=== PATIENT | male | born 1935 | race Caucasian/White ===

== ENCOUNTER → 2017-07-10 10:38 | Outpatient (CLI) | payer MEDICARE, SELFPAY ==
[2017-07-10 12:24] LABS: ALB/GLOB Ratio 1.1 RATIO (0.9-2.4); AST(SGOT) 19 U/L (15-37); Alanine Aminotransfer ALT/SGPT 25 U/L (16-61); Albumin, Serum 3.5 g/dL (3.2-5.0); Alkaline Phosphatase 100 U/L (45-117); Anion Gap 5 (5-15); BUN 21 mg/dL (7-18); BUN/Creat Ratio 20.2 RATIO (10-20); Calcium,Total 8.6 mg/dL (8.5-10.1); Chloride 110 mmol/L (98-107); Cholesterol 129 mg/dL (200); Creatinine, Serum 1.04 mg/dL (0.70-1.30); EST Glomerular Filtration Rate 73 mL/min (>60); Est Glom Filt Rate - Afr Amer 88 mL/min (>60); Globulin 3.3 g/dL (2.2-4.2); Glucose 96 mg/dL (74-106); High Density Lipoprotein 53 mg/dL; Potassium 4.2 mmol/L (3.5-5.1); Protein, Total 6.8 g/dL (6.4-8.2); Sodium Level 143 mmol/L (136-145); Triglycerides 97 mg/dL; Very Low Density Lipoprotein 19 mg/dL (5-40)
[2017-07-10 12:34] LABS: Hemoglobin A1c 5.9 % (4.2-6.3)
== END ==
PROVIDERS: Family Provider Internal Medicine; PCP Internal Medicine; Visit Provider Family Medicine
DX: E78.2 Mixed hyperlipidemia (principal); Z79.899 Other long term (current) drug therapy
CPT/HCPCS: 80053; 80061; 83036

== ENCOUNTER → 2017-09-04 06:30 | Outpatient (CLI) | payer MEDICARE, SELFPAY ==
--- NOTE | 2017-09-04 06:32 | CDU_ITS ---
Reason For Study: vertigo Rt. Velocities/BP Lt. Velocities/BP Prox CCA 133.0/12.9 cm/sec. Prox CCA 160.0/29.1 cm/sec. Mid CCA 118.0/13.5 cm/sec. Mid CCA 158.0/28.3 cm/sec. Dist CCA 105.0/15.8 cm/sec. Dist CCA 123.0/20.4 cm/sec. Prox ICA 43.2/12.2 cm/sec. Prox ICA 115.0/27.0 cm/sec. Mid ICA 100.0/28.1 cm/sec. Mid ICA 105.0/24.6 cm/sec. Dist ICA 70.9/19.3 cm/sec. Dist ICA 64.0/15. cm/sec. Rt. ICA/CCA = 100.0/118.0=0.85. Lt. ICA/CCA = 115.0/158.0=0.73. Prox ECA 114.0/9.97 cm/sec. Prox ECA 114.0/13.4 cm/sec. Rt. Vert. 51.5/13.4 cm/sec. Lt. Vert. 53.8/18.9 cm/sec. Right Extracranial There is homogeneous, smooth atherosclerotic plaque noted in the right common carotid artery. There is heterogeneous, irregular atherosclerotic plaque noted in the right internal carotid artery. The right internal carotid artery is very tortuous. There is intimal thickening but no significant atherosclerotic plaque noted in the right external carotid artery. Antegrade flow is noted in the right vertebral artery. Left Extracranial There is homogeneous, smooth atherosclerotic plaque noted in the left common carotid artery. There is heterogeneous, irregular atherosclerotic plaque noted in the left internal carotid artery. The left internal carotid artery is very tortuous. There is no significant atherosclerotic plaque noted in the left external carotid artery. Antegrade flow is noted in the left vertebral artery. Procedure Carotid Duplex [id number]. The exam was diagnostic. The study was technically difficult. Exam performed in department. Interpretation Summary Mild irregular plague within the right internal carotid with smooth plague on the left. <50% stenosis bilateral internal carotids Normal flow bilateral external carotids Patent and antegrade vertebrals bilaterally. Ordering Physician: Kishor Lee Referring Physician: Ponce Camacho Performed By: Kavita Xie, RUDY, RVT
--- NOTE | 2017-09-04 06:32 | ECHOD_ITS ---
Reason For Study: CAD/ASHD Procedure This was a 2D Doppler, Color Flow transthoracic echocardiogram. Exam performed in department. Left Ventricle Normal LV size. The estimated ejection fraction is 50 %. Left ventricular systolic function is lower limits of normal. Transmitral diastolic flow velocities suggest mild (stage 1) diastolic dysfunction (reversed pattern). No regional wall motion abnormalities noted. Right Ventricle Normal RV size. Normal systolic function. Atria Normal left atrium. Normal right atrium. Mitral Valve Normal mitral valve. Tricuspid Valve Normal tricuspid valve. Mild (1+) tricuspid valve insufficiency. Pulmonary artery systolic pressure is 29 mmHg. Aortic Valve Normal aortic valve. Trisinus/trileaflet aortic valve. Mild (1+) eccentric aortic valve insufficiency. Pulmonic Valve Normal pulmonic valve. Mild (1+) pulmonic valve insufficiency. Great Vessels Normal aortic root. The pulmonary artery is normal size. Normal inferior vena cava. Pericardium/Pleural No pericardial effusion. MMode/2D Measurements & Calculations LVIDd: 5.3 cm IVSd: 1.2 cm Ao root diam: 3.2 cm LVIDs: 3.7 cm LVPWd: 1.2 cm RVDd: 2.7 cm FS: 29.8 % LAV(MOD-bp): 61.1 ml EDV(MOD-sp4): 131.4 ml SV(MOD-sp4): 72.2 ml LAV(MOD-bp) Indexed: 30.7 ml/m2 ESV(MOD-sp4): 59.2 ml LAV(MOD-sp2): 59.5 ml EF(MOD-sp4): 54.9 % LAV(MOD-sp4): 62.2 ml LA A4 area: 20.1 cm2 RA A4 area: 15.5 cm2 Time Measurements MV dec time: 0.24 sec Doppler Measurements & Calculations MV E max shivam: 79.8 cm/sec Lat Peak E' Shivam: 5.6 cm/sec Med Peak E' Shivam: 4.5 cm/sec MV A max shivam: 128.2 cm/sec E/E' lat: 14.2 E/E' med: 17.9 MV E/A: 0.62 Ao V2 max: 132.4 cm/sec AI max shivam: 297.4 cm/sec LV V1 max: 76.1 cm/sec Ao max P.0 mmHg AI max P.4 mmHg LV V1 max P.3 mmHg AI dec slope: 102.7 cm/sec2 AI P1/2t: 847.9 msec PA V2 max: 106.3 cm/sec PI end-d shivam: 73.0 cm/sec TR max shivam: 256.6 cm/sec TR max P.3 mmHg Interpretation Summary Normal LV size. The estimated ejection fraction is 50 %. Left ventricular systolic function is lower limits of normal. Mild (1+) tricuspid valve insufficiency. Mild (1+) eccentric aortic valve insufficiency. Ordering Physician: Kishor Lee Referring Physician: RICKIE BLACKBURN Performed By: Elizabeth Guevara RDCS
--- NOTE | 2017-09-04 10:21 | STRESSREP ---
Stress Test Report Pharmacologic myocardial perfusion stress test. 82-year-old man with a history of chest pain. Stress protocol: Resting EKG demonstrates sinus bradycardia with a rate of 50 bpm. Resting blood pressure is 164/80 mmHg. The patient exercised according to the regular [facility] protocol for total duration of 3 minutes and 30 seconds. The maximum heart rate attained was 131 bpm which was 93% of maximum predicted heart rate. Patient maintained sinus rhythm throughout the recording with a short period of a supraventricular tachyarrhythmia. During recovery premature ventricular complexes were noted. The above were asymptomatic. The resting blood pressure was 164/80 mmHg with a final blood pressure 158/78 mmHg. No clinical angina was noted. The maximum workload attained was 4.6 metabolic equivalents. Myocardial perfusion protocol: 11.4 mCi of technetium 99m sestamibi was injected at rest. The patient exercised according to regular [facility] protocol for 3-1/2 minutes attaining 93% of maximum predicted heart rate and a workload of 4.6 metabolic equivalents. At peak exercise 32.8 mCi of technetium 99m sestamibi was injected. Stress and rest images were reconstructed and compared in the short axis vertical long and horizontal long axis. Gated images were also obtained. Perfusion SPECT analysis: Review of the stress images demonstrate normal uptake of tracer noted in all areas of the myocardium. The basal lateral wall demonstrates mild reduction in perfusion which is present on the stress and rest images to a similar extent. A previous infarct in this area cannot be completely excluded. No ischemia however is noted. Gated SPECT analysis: The gated ejection fraction is noted to be 53%. Conclusion: Exercise myocardial perfusion stress test with no evidence of ischemia noted at a low workload. Previous basal infarct cannot be completely excluded. Preserved ejection fraction.
== END ==
PROVIDERS: Family Provider Family Medicine; PCP Family Medicine; Visit Provider Internal Medicine Cardiovascular Disease
DX: I25.10 Atherosclerotic heart disease of native coronary artery without angina pectoris (principal); R09.89 Other specified symptoms and signs involving the circulatory and respiratory systems
CPT/HCPCS: 78452; 93017; 93306; 93880; A9500; A4216

== ENCOUNTER 2018-05-12 05:20 | Emergency (ER) | payer MEDICARE, SELFPAY ==
[2018-05-12 05:22] VITALS: BP 158/84; PULSE 79; RESP 16; TEMP 36.9; O2SAT 95; BMI 32.2
[2018-05-12] MEDS: 0.9% Normal Saline 1,000 ML 1000 ML IV (06:15)
[2018-05-12 06:16] LABS: Absolute Lymphocyte Count 0.88 X10^3/ul (0.83-4.51); Absolute Neutrophil Count 3.6 X10^3/uL (2.0-7.7); Basophil# 0.02 X10^3/uL; Basophil% 0.4 % (0-1); Eosinophil# 0.08 X10^3/uL; Eosinophils% 1.6 % (0-5); Hematocrit 38.1 % (40-54); Hemoglobin 12.9 g/dl (13.0-16.5); Lymphocyte # 0.88 X10^3/ul (4.0); Lymphocyte % 17.3 % (19-41); Mean Corp Hgb Conc 33.9 g/gl (32-36); Mean Corpuscular Hgb 30.9 pg (27.0-32.0); Mean Corpuscular Volume 91.1 fL (80-94); Mean Platelet Vol. 9.9 fl (6.2-12.0); Monocyte# 0.51 X10^3/uL; Neutrophil # 3.58 X10^3/uL (2.7-7.7); Neutrophil % 70.5 % (47-70); Platelet Count 150 K/mm3 (150-450); RBC Distribution Width CV 13.3 % (11.6-14.6); RBC Distribution Width SD 43.2 fl (35.1-43.9); Red Blood Count 4.18 M/mm3 (4.6-6.2); White Blood Count 5.1 K/mm3 (4.4-11.0)
[2018-05-12 06:22] LABS: POSITIVE COUNT NO; POSITIVE DIFFERENTIAL NO; POSITIVE MORPHOLOGY NO
[2018-05-12 06:27] LABS: ALB/GLOB Ratio 1.1 RATIO (0.9-2.4); AST(SGOT) 33 U/L (15-37); Alanine Aminotransfer ALT/SGPT 36 U/L (16-61); Albumin, Serum 3.4 g/dL (3.2-5.0); Alkaline Phosphatase 110 U/L (45-117); Anion Gap 9 (5-15); BUN 24 mg/dL (7-18); BUN/Creat Ratio 22.6 RATIO (10-20); Calcium,Total 8.3 mg/dL (8.5-10.1); Chloride 110 mmol/L (98-107); Creatinine, Serum 1.06 mg/dL (0.70-1.30); EST Glomerular Filtration Rate 71 mL/min (>60); Est Glom Filt Rate - Afr Amer 86 mL/min (>60); Estimated Creatinine Clearance 49.32 ml/min; Glucose 106 mg/dL (74-106); Lipase 127 U/L (73-393); Potassium 3.6 mmol/L (3.5-5.1); Protein, Total 6.4 g/dL (6.4-8.2); Sodium Level 144 mmol/L (136-145)
--- NOTE | 2018-05-12 06:29 | ED.VISSUMM ---
- ER Visit Summary Date of Service: 05/12/18 Chief Complaint: Nausea vomiting and diarrhea History of Present Illness: The patient is a 83 M who states that he attended a libertarian on . The next day he developed nausea vomiting and diarrhea. He has not had any further vomiting since May 09 but continues to have diarrhea. He states he has had 4 episodes since midnight. There were at least 2 other individuals from the libertarian with similar symptoms although as far as he is aware that her symptoms have had since resolved. The patient denies any abdominal pain. He is concerned because he states he knows of end of joules with similar symptoms who then developed kidney problems. No fevers. Review of systems otherwise negative. Physical Examination: Afebrile vitals unremarkable heart rate normal Moist mucous membranes Heart regular rate and rhythm Lungs are clear Abdomen soft nontender to palpation nondistended Test Results: Labs unremarkable except hemoglobin 12.9. White count hepatic function lipase creatinine all normal. Emergency Department Course and Treatment: Patient was treated here with IV fluids. He has had no vomiting for 3 days. He does not appear clinically dehydrated and renal function is normal. He has no leukocytosis fevers tachycardia. I do not believe any imaging is indicated. This is likely related to food poisoning or viral illness. He was advised on supportive care including drinking plenty of fluids. He was advised to follow-up with his primary care physician. He understands to return for new or worsening symptoms. Patient agreeable to this plan, all questions answered bedside. Patient discharged. Treatment Plan: [] Disposition: Discharge Impression: Gastroenteritis This note was generated with [employer] dictation software. It may contain incorrect words, spelling, and punctuation that were not noted in review of the chart prior to signing ED Disposition - Plan for ED Patient: Chief Complaint: Nausea/Vomiting/Diarrhea Referrals: Ponce Camacho MD [Primary Care Provider] -
--- NOTE | 2018-05-12 06:39 | ED.DEP ---
ED Disposition - Plan for ED Patient: Chief Complaint: Nausea/Vomiting/Diarrhea Instructions: ED Gastroenteritis Vs Food Poison Referrals: Ponce Camacho MD [Primary Care Provider] -
[2018-05-12 06:53] VITALS: BP 150/85; PULSE 69; RESP 16; O2SAT 95
== END 2018-05-12 06:58 | disposition home or self-care (01) ==
PROVIDERS: Emergency Provider Emergency Medicine; Family Provider Family Medicine; PCP Family Medicine
DX: K52.9 Noninfective gastroenteritis and colitis, unspecified (principal); I25.10 Atherosclerotic heart disease of native coronary artery without angina pectoris; I10 Essential (primary) hypertension; Z79.82 Long term (current) use of aspirin; Z79.899 Other long term (current) drug therapy; Z95.5 Presence of coronary angioplasty implant and graft
CPT/HCPCS: 80053; 83690; 85025; 96360; 99285; J7030

== ENCOUNTER → 2018-06-21 17:10 | Outpatient (CLI) | payer MEDICARE, SELFPAY | PROVIDERS: Family Provider Family Medicine; PCP Family Medicine; Referring Provider Family Medicine; Visit Provider Family Medicine | DX: K92.1 Melena (principal) | CPT/HCPCS: 82274 ==

== ENCOUNTER → 2018-07-05 13:49 | Outpatient (CLI) | payer MEDICARE, SELFPAY ==
[2018-07-05 14:28] LABS: Hematocrit 39.9 % (40-54); Hemoglobin 13.1 g/dl (13.0-16.5); Mean Corp Hgb Conc 32.8 g/gl (32-36); Mean Corpuscular Hgb 30.2 pg (27.0-32.0); Mean Corpuscular Volume 91.9 fL (80-94); Mean Platelet Vol. 10.2 fl (6.2-12.0); Platelet Count 172 K/mm3 (150-450); RBC Distribution Width CV 13.5 % (11.6-14.6); RBC Distribution Width SD 44.5 fl (35.1-43.9); Red Blood Count 4.34 M/mm3 (4.6-6.2); White Blood Count 5.4 K/mm3 (4.4-11.0)
[2018-07-05 14:30] LABS: Scan Indicated on CBC? Y/N NO
== END ==
PROVIDERS: Family Provider Family Medicine; PCP Family Medicine; Referring Provider Nurse Practitioner Adult Health; Visit Provider Nurse Practitioner Adult Health
DX: R19.5 Other fecal abnormalities (principal); K62.5 Hemorrhage of anus and rectum
CPT/HCPCS: 85027

== ENCOUNTER → 2018-07-10 10:07 | Outpatient (CLI) | payer MEDICARE, SELFPAY ==
[2018-07-10 10:40] LABS: Hemoglobin A1c 5.7 % (4.2-6.3)
[2018-07-10 10:58] LABS: ALB/GLOB Ratio 1.2 RATIO (0.9-2.4); AST(SGOT) 15 U/L (15-37); Alanine Aminotransfer ALT/SGPT 22 U/L (16-61); Albumin, Serum 3.6 g/dL (3.2-5.0); Alkaline Phosphatase 87 U/L (45-117); Anion Gap 9 (5-15); BUN 22 mg/dL (7-18); BUN/Creat Ratio 21.4 RATIO (10-20); Calcium,Total 8.2 mg/dL (8.5-10.1); Chloride 110 mmol/L (98-107); Cholesterol 120 mg/dL (200); Creatinine, Serum 1.03 mg/dL (0.70-1.30); EST Glomerular Filtration Rate 74 mL/min (>60); Est Glom Filt Rate - Afr Amer 89 mL/min (>60); Glucose 96 mg/dL (74-106); High Density Lipoprotein 51 mg/dL; Potassium 4.1 mmol/L (3.5-5.1); Protein, Total 6.6 g/dL (6.4-8.2); Sodium Level 144 mmol/L (136-145); Thyroid Stim Hormone (TSH) 1.73 uIU/mL (0.358-3.74); Triglycerides 90 mg/dL; Very Low Density Lipoprotein 18 mg/dL (5-40)
== END ==
PROVIDERS: Family Provider Family Medicine; PCP Family Medicine; Referring Provider Family Medicine; Visit Provider Family Medicine
DX: E78.2 Mixed hyperlipidemia (principal); I10 Essential (primary) hypertension; R73.01 Impaired fasting glucose; Z79.899 Other long term (current) drug therapy
CPT/HCPCS: 80053; 80061; 83036; 84443

== ENCOUNTER → 2018-09-25 13:00 | Outpatient (CLI) | payer MEDICARE, SELFPAY ==
[2018-08-16 10:42] VITALS: BMI 32.1
== END ==
PROVIDERS: Family Provider Family Medicine; PCP Family Medicine; Referring Provider Family Medicine; Visit Provider Family Medicine
DX: R30.9 Painful micturition, unspecified (principal)
CPT/HCPCS: 87077; 87086; 87088; 87186

== ENCOUNTER → 2019-01-11 10:43 | Outpatient (CLI) | payer MEDICARE, SELFPAY ==
[2018-08-16 10:42] VITALS: BMI 32.1
[2019-01-11 11:21] LABS: ALB/GLOB Ratio 1.1 RATIO (0.9-2.4); AST(SGOT) 15 U/L (15-37); Alanine Aminotransfer ALT/SGPT 19 U/L (16-61); Albumin, Serum 3.3 g/dL (3.2-5.0); Alkaline Phosphatase 90 U/L (45-117); Anion Gap 5 (5-15); BUN 22 mg/dL (7-18); BUN/Creat Ratio 20.4 RATIO (10-20); Calcium,Total 8.4 mg/dL (8.5-10.1); Chloride 114 mmol/L (98-107); Cholesterol 119 mg/dL (200); Creatinine, Serum 1.08 mg/dL (0.70-1.30); EST Glomerular Filtration Rate 70 mL/min (>60); Est Glom Filt Rate - Afr Amer 84 mL/min (>60); Glucose 99 mg/dL (74-106); High Density Lipoprotein 50 mg/dL; Protein, Total 6.3 g/dL (6.4-8.2); Sodium Level 145 mmol/L (136-145); Triglycerides 71 mg/dL; Very Low Density Lipoprotein 14 mg/dL (5-40)
[2019-01-11 12:13] LABS: Hemoglobin A1c 5.6 % (4.2-6.3)
== END ==
PROVIDERS: Family Provider Family Medicine; PCP Family Medicine; Referring Provider Nurse Practitioner Family; Visit Provider Nurse Practitioner Family
DX: I10 Essential (primary) hypertension (principal); E78.2 Mixed hyperlipidemia; R73.09 Other abnormal glucose
CPT/HCPCS: 80053; 80061; 83036

== ENCOUNTER → 2020-01-24 | Outpatient (CLI) | payer MEDICARE, SELFPAY ==
[2019-08-15 09:35] VITALS: BMI 30.7
[2020-01-24 13:10] LABS: Absolute Lymphocyte Count 1.19 X10^3/uL (0.83-4.51); Absolute Neutrophil Count 3.1 X10^3/uL (2.0-7.7); Basophil# 0.03 X10^3/uL; Basophil% 0.6 % (0-1); Eosinophil# 0.14 X10^3/uL; Eosinophils% 2.8 % (0-5); Hematocrit 38.1 % (40-54); Hemoglobin 12.6 g/dL (13.0-16.5); Lymphocyte # 1.19 X10^3/ul (4.0); Lymphocyte % 23.5 % (19-41); Mean Corp Hgb Conc 33.1 g/dL (32-36); Mean Corpuscular Volume 90.7 fL (80-94); Mean Platelet Vol. 10.3 fl (6.2-12.0); Monocyte# 0.56 X10^3/uL; Monocyte% 11.1 % (0-10); NRBC Flagged by Analyzer 0 % (0-5); Neutrophil # 3.13 X10^3/uL (2.7-7.7); Neutrophil % 61.8 % (47-70); Platelet Count 171 K/mm3 (150-450); RBC Distribution Width CV 13.1 % (11.6-14.6); RBC Distribution Width SD 43.2 fl (35.1-43.9); White Blood Count 5.1 K/mm3 (4.4-11.0)
[2020-01-24 13:21] LABS: ALB/GLOB Ratio 1.2 RATIO (0.9-2.4); AST(SGOT) 18 U/L (15-37); Alanine Aminotransfer ALT/SGPT 21 U/L (16-61); Albumin, Serum 3.5 g/dL (3.2-5.0); Alkaline Phosphatase 87 U/L (45-117); Anion Gap 7 (5-15); BUN 21 mg/dL (7-18); BUN/Creat Ratio 16.9 RATIO (10-20); Calcium,Total 8.7 mg/dL (8.5-10.1); Chloride 111 mmol/L (98-107); Cholesterol 129 mg/dL (200); Creatinine, Serum 1.24 mg/dL (0.70-1.30); EST Glomerular Filtration Rate 59 mL/min (>60); Est Glom Filt Rate - Afr Amer 72 mL/min (>60); Glucose 100 mg/dL (74-106); High Density Lipoprotein 45 mg/dL; Potassium 3.9 mmol/L (3.5-5.1); Protein, Total 6.5 g/dL (6.4-8.2); Sodium Level 144 mmol/L (136-145); Triglycerides 96 mg/dL; Very Low Density Lipoprotein 19 mg/dL (5-40)
[2020-01-24 13:34] LABS: Hemoglobin A1c 5.6 % (3.8-5.6)
== END | disposition home or self-care (01) ==
LOC: LABSPEC 12:51
PROVIDERS: PCP Family Medicine; Visit Provider Registered Nurse
DX: I10 Essential (primary) hypertension (principal); E78.2 Mixed hyperlipidemia; I25.10 Atherosclerotic heart disease of native coronary artery without angina pectoris; R73.09 Other abnormal glucose
CPT/HCPCS: 80053; 80061; 83036; 85025

== ENCOUNTER 2020-07-01 14:29 | Outpatient (RCR) | payer MEDICARE, SELFPAY ==
[2020-04-13 09:19] VITALS: BMI 30.4
== END 2020-07-01 23:59 ==
LOC: IMMUN 14:29
PROVIDERS: PCP Family Medicine; Referring Provider Family Medicine; Visit Provider Family Medicine
DX: Z23 Encounter for immunization (principal)
CPT/HCPCS: 0011A; 0012A; 91301

== ENCOUNTER 2020-11-29 12:52 | Emergency (ER) | payer MEDICARE, SELFPAY ==
[2020-11-24 10:11] VITALS: BMI 32.1
[2020-11-29 12:54] VITALS: BP 167/79; PULSE 73; RESP 16; TEMP 37; O2SAT 96; BMI 32.2
[2020-11-29] MEDS: Lidocaine 1% (20 ml mdv) 20 ML Vial 5 ML INFILT (13:14)
[2020-11-29] MEDS: Diphth,Pertuss(Acell),Tet Vac 0.5 ML Vial IM (13:15)
--- NOTE | 2020-11-29 13:21 | EDS_ITS ---
HPI History of Present Illness Chief Complaint: Laceration Informant: patient Narrative Narrative: Patient is an 85-year-old male who presents to the emergency department for right thumb laceration. He states that he cut it on the table saw today. He denies any other injury from the occurrence. Patient is on an aspirin daily as well as Plavix. No other blood thinning medications. Bleeding controlled on arrival to the ED. He denies any loss sensation. He does have good range of motion. Patient does not know when his last tetanus shot update was. [facility] Medical History Atherosclerotic heart disease of [place] coronary artery without angina pectoris BPH (benign prostatic hyperplasia) Essential (primary) hypertension Hearing loss in right ear History of kidney stones History of non-ST elevation myocardial infarction (NSTEMI) (09/06/14) Obesity Primary hyperparathyroidism Pure hypercholesterolemia Home Medications aspirin 81 mg PO DAILY 09/06/14 [History Last Taken Unknown] multivitamin with folic acid 1 tab PO DAILY 09/06/14 [History Last Taken Unknown] nitroglycerin 0.4 mg sublingual tablet 0.4 mg SUBLINGUAL Q5-15M PRN 08/15/17 [History Last Taken Unknown] atorvastatin 80 mg tablet 80 mg PO QDAY #90 tab 08/15/19 [Rx Last Taken Unknown] carvedilol 6.25 mg tablet 6.25 mg PO BID #180 tab 08/15/19 [Rx Last Taken Unknown] cholecalciferol (vitamin D3) 25 mcg (1,000 unit) capsule 2,000 unit PO QDAY cap 08/15/19 [History Last Taken Unknown] clopidogrel 75 mg tablet 75 mg PO QDAY #90 tab 08/15/19 [Rx Last Taken Unknown] melatonin 5 mg capsule 5 mg PO QHS cap 08/15/19 [History Last Taken Unknown] losartan 100 mg tablet 100 mg PO QDAY #90 tab 08/07/20 [Rx Last Taken Unknown] amlodipine 5 mg tablet 5 mg PO DAILY #90 tab 11/24/20 [Rx Last Taken Unknown] diphenhydramine HCl 50 mg capsule 50 mg PO QHS PRN 11/24/20 [History Last Taken Unknown] ibuprofen 200 mg capsule 200 mg PO Q6H PRN 11/24/20 [History Last Taken Unknown] Allergy/AdvReac Type Severity Reaction Status Date / Time No Known Allergies Allergy Verified 11/29/20 12:52 Family History Mother Diabetes Father CAD (coronary artery disease) Myocardial infarction S/P CABG (coronary artery bypass graft) Surgical History History of coronary artery stent placement (10/21/14) Social History Smoking Status: Never smoker ROS ROS ED Constitutional Constitutional ED: Denies chills or fever(s) ENT ENT ED: Denies epistaxis Cardiovascular Cardiovascular: Denies chest pain Respiratory/Chest Respiratory/Chest: Denies cough or dyspnea Gastrointestinal Gastrointestinal: Denies abdominal pain, nausea or vomiting Musculoskeletal Musculoskeletal: Denies back pain or neck pain Integumentary Reports other Details: Thumb laceration ; Denies rash Neurologic Neurologic: Denies weakness EXAM Physical Exam Const Vital Signs: 11/29/20 12:54 11/29/20 14:24 Temperature 98.6 F Temperature Source Temporal Pulse Rate 73 60 Respiratory Rate 16 16 Blood Pressure 167/79 H 148/94 H Blood Pressure Mean 108 Pulse Ox 96 Oxygen Delivery Method Room Air Positive well nourished and well developed General Appearance ED: well developed HEENT atraumatic Eyes PERRL Neck full ROM Resp normal respiratory effort Cardio Rate: regular rate Extremity Extremity Narrative: Thumb laceration with flap, 3.5cm. Sensation intact. Brisk capillary refill. Slow venous ooze present. Full range of motion. No exposed bone. Fat pad involvement. Neuro Sensorium / Orientation: alert Psych mental status grossly normal PROC Procedures Lacerations Thumb: Length: 1.38 in Depth: Skin Shape: Flap Prep: Sterile Conditions and Shure-Clens Laceration repair: Digital block (5cc lido without epi) Number of Sutures/Yashira: 7 Suture Information: Simple and 5-0 MDM MDM MDM Narrative Medical decision making narrative: Patient presents to the ED for laceration to right thumb pad. On arrival to the ED patient is mildly hypertensive otherwise normal vital signs. Patient will be updated on Tdap. Wound is cleaned and will be repaired. Wound was cleaned and irrigated. He tolerated this well. After anesthetizing the thumb it was repaired using sutures. He tolerated this well. Antibiotic ointment and Band-Aid applied. He is to have the sutures removed in 7 to 10 days. He is to monitor for evidence of infection. He understands and is agreeable to plan. Discharged home in stable condition. All questions were answered. Discharge Plan Triage Chief Complaint: Laceration ED Provider: Sergio Roberts Dx/Rx/DC Orders Clinical Impression: Finger laceration Instructions: ED Laceration, Hand: All Closures Prescriptions: No Action nitroglycerin 0.4 mg tablet, sublingual 0.4 mg SUBLINGUAL Q5-15M PRN (Reason: CHEST PAIN) RF: 0 cholecalciferol (vitamin D3) 25 mcg (1,000 unit) capsule 2,000 unit PO QDAY RF: 0 melatonin 5 mg capsule 5 mg PO QHS RF: 0 atorvastatin 80 mg tablet 80 mg PO QDAY Qty: 90 RF: 3 carvedilol [Coreg] 6.25 mg tablet 6.25 mg PO BID Qty: 180 RF: 3 clopidogrel [Plavix] 75 mg tablet 75 mg PO QDAY Qty: 90 RF: 3 ibuprofen 200 mg capsule 200 mg PO Q6H PRNRF: 0 diphenhydramine HCl [Nightime Sleep] 50 mg capsule 50 mg PO QHS PRNRF: 0 amlodipine 5 mg tablet 5 mg PO DAILY Qty: 90 RF: 3 aspirin 81 MG tablet,chewable 81 mg PO DAILY RF: 0 multivitamin with folic acid 1 TABLET tablet 1 tab PO DAILY RF: 0 losartan 100 mg tablet 100 mg PO QDAY Qty: 90 RF: 3 Primary Care Provider: Ponce Camacho Referrals: Ponce Camacho MD [Primary Care Provider] - 7 Days for suture removal Disposition Disposition: Home, Self Care Discharge Date/Time: 11/29/20 14:25
[2020-11-29 14:24] VITALS: BP 148/94; PULSE 60; RESP 16
== END 2020-11-29 14:25 | disposition home or self-care (01) ==
PROVIDERS: Emergency Provider Emergency Medicine; PCP Family Medicine
DX: S61.011A Laceration without foreign body of right thumb without damage to nail, initial encounter (principal); Z23 Encounter for immunization; W29.8XXA Contact with other powered hand tools and household machinery, initial encounter; Y93.9 Activity, unspecified; Y92.9 Unspecified place or not applicable; Y99.9 Unspecified external cause status; I25.10 Atherosclerotic heart disease of native coronary artery without angina pectoris; I10 Essential (primary) hypertension; E21.0 Primary hyperparathyroidism; E78.00 Pure hypercholesterolemia, unspecified; N40.0 Benign prostatic hyperplasia without lower urinary tract symptoms; Z79.82 Long term (current) use of aspirin; Z79.02 Long term (current) use of antithrombotics/antiplatelets; Z79.899 Other long term (current) drug therapy; Z87.442 Personal history of urinary calculi; I25.2 Old myocardial infarction; Z95.5 Presence of coronary angioplasty implant and graft
CPT/HCPCS: 12002; 90471; 90715; 99282

== ENCOUNTER → 2021-01-13 | Outpatient (CLI) | payer MEDICARE, SELFPAY ==
[2021-01-13 12:33] LABS: Cholesterol 113 mg/dL (200); High Density Lipoprotein 34 mg/dL; Triglycerides 120 mg/dL; Very Low Density Lipoprotein 24 mg/dL (5-40)
== END | disposition home or self-care (01) ==
LOC: LABSPEC 12:27
PROVIDERS: PCP Family Medicine; Visit Provider Family Medicine
DX: E78.2 Mixed hyperlipidemia (principal); I10 Essential (primary) hypertension
CPT/HCPCS: 80061

== ENCOUNTER → 2022-05-19 | Outpatient (CLI) | payer MEDICARE, SELFPAY ==
[2022-05-19 13:06] LABS: Absolute Lymphocyte Count 1.35 X10^3/uL (0.83-4.51); Absolute Neutrophil Count 3.7 X10^3/uL (2.0-7.7); Basophil# 0.04 X10^3/uL; Basophil% 0.7 % (0-1); Eosinophil# 0.16 X10^3/uL; Eosinophils% 2.8 % (0-5); Hematocrit 37.1 % (40-54); Hemoglobin 12.1 g/dL (13.0-16.5); Lymphocyte # 1.35 X10^3/ul (0.83-4.51); Lymphocyte % 23.7 % (19-41); Mean Corp Hgb Conc 32.6 g/dL (32-36); Mean Corpuscular Hgb 29.7 pg (27.0-32.0); Mean Corpuscular Volume 90.9 fL (80-94); Monocyte# 0.46 X10^3/uL; Monocyte% 8.1 % (0-10); NRBC Flagged by Analyzer 0 % (0-5); Neutrophil # 3.67 X10^3/uL (2.7-7.7); Neutrophil % 64.5 % (47-70); Platelet Count 161 K/mm3 (150-450); RBC Distribution Width CV 13.6 % (11.6-14.6); RBC Distribution Width SD 45.7 fl (35.1-43.9); Red Blood Count 4.08 M/mm3 (4.6-6.2); White Blood Count 5.7 K/mm3 (4.4-11.0)
[2022-05-19 13:51] LABS: Anion Gap 6 (5-15); BUN 26 mg/dL (7-18); BUN/Creat Ratio 24.8 RATIO (10-20); Calcium,Total 8.5 mg/dL (8.5-10.1); Chloride 110 mmol/L (98-107); Creatinine, Serum 1.05 mg/dL (0.70-1.30); EST Glomerular Filtration Rate 71 mL/min (>60); Est Glom Filt Rate - Afr Amer 86 mL/min (>60); Glucose 168 mg/dL (74-106); Potassium 3.7 mmol/L (3.5-5.1); Sodium Level 143 mmol/L (136-145); T4 Free Direct 0.93 ng/dL (0.76-1.46); Thyroid Stim Hormone (TSH) 1.92 uIU/mL (0.358-3.74)
== END | disposition home or self-care (01) ==
LOC: LAB 12:06
PROVIDERS: PCP Family Medicine; Visit Provider Nurse Practitioner Family
DX: I10 Essential (primary) hypertension (principal); E78.00 Pure hypercholesterolemia, unspecified; R53.83 Other fatigue
CPT/HCPCS: 36415; 80048; 84439; 84443; 85025

== ENCOUNTER 2024-01-21 07:06 | Inpatient (IN) | payer MEDICARE, SELFPAY ==
[2024-01-21] VITALS (8 sets, daily range): BP systolic 97–170; BP diastolic 50–83; PULSE 68–84; RESP 15–19; TEMP 36.3–37.1; O2SAT 95–99; BMI 30.1; BMI 28.9
--- NOTE | 2024-01-21 07:32 | CT_ITS ---
STUDY: CT ABDOMEN AND PELVIS WITH CONTRAST REASON FOR EXAM: Male, 88 years old. Diarrhea RADIATION DOSAGE (If Supplied By Facility): CTDIvol = ( 14.04 ) mGy, DLP = ( 918.69 ) mGycm TECHNIQUE: IV 100mL Isovue-300 was administered. Transaxial images were obtained from the dome of the diaphragm to the symphysis pubis. Multiplanar coronal and sagittal images were reformatted. The protocol utilizes one or more of the following dose reduction techniques: automated exposure control, adjustment of mA and/or kV according to patient size,and/or use of iterative reconstruction technique. COMPARISON: No relevant prior comparison study available FINDINGS: The visualized lung bases are unremarkable. The visualized portions of the heart are within normal limits. Normal liver. Normal gallbladder and extrahepatic biliary system. Normal spleen. Normal pancreas. Normal bilateral adrenal glands. Thickening of the gastric antrum could be due to underdistention. Gastritis cannot be excluded. Nonspecific fluid-filled small bowel loops. Fluid-filled colon. No evidence of acute diverticulitis. There is non-visualization of the appendix. There is diffuse atherosclerotic calcification of the abdominal aorta, without a demonstrated aneurysm. No retroperitoneal adenopathy. 1.6 cm simple cyst in the right kidney for which no further follow-up exam is needed. No evidence of hydronephrosis Normal urinary bladder. No pelvic mass. Small bilateral inguinal hernias containing fat. There are degenerative changes of the visualized lumbar spine. CT/Abdomen/Pelvis W IV Cont ONLY IMPRESSION: 1. Thickening of the gastric antrum and fluid-filled small bowel loops and colon concerning for gastritis and enterocolitis. 2. Otherwise no focal acute inflammatory process. 3. Small bilateral inguinal hernias containing fat. Electronically Signed: Alek Schultz MD at 9:53 EDT ,
--- NOTE | 2024-01-21 07:33 | EX.ED.GENINJ ---
HPI History of Present Illness Chief Complaint: Nausea/Vomiting/Diarrhea Narrative Narrative: Chief complaint and HPI: Nausea, vomiting, diarrhea. 88-year-old male with history of CAD status post PCI, HLD, HTN presents for evaluation of nausea, vomiting, diarrhea. Onset of symptoms was approximately Monday. Patient states since Monday he has had continuous diarrhea with intermittent nausea and vomiting. He presents today due to increased weakness. He endorses decreased p.o. intake. Has been taking all of his medications. He denies any fever, chills, URI symptoms, chest pain, shortness of breath, bloody bowel movements, dysuria. Does endorse some diffuse abdominal pain. Denies history of abdominal surgeries. Denies history of diverticulitis. Review of systems: See HPI Medications: As listed on the chart Allergies: As listed on the chart PFSH: Per chart Vital signs: As listed on the chart. Reviewed. Physical exam: Gen: A&O x3, NAD Head: Normocephalic, atraumatic Eyes: No sclera icterus, conjunctiva clear ENT: Dry mucous membranes Neck: Trachea midline, No JVD CV: RRR, no murmurs, no peripheral edema Resp: Lungs CTA BL, no w/r/c GI: Abd soft, non-distended, minimally tender diffusely, no r/r/g Musc: Moves all extremities, no deformity Skin: Warm, dry Neuro: Alert, oriented, grossly intact, sensation intact Psych: Cooperative, appropriate mood and affect EKG: Interpreted by me/EM physician: EKG shows normal sinus rhythm without any acute ischemic changes. Patient does have intermittent PVCs. His heart rate is 65. [facility] Medical History (Updated 01/21/24 @ 16:[address] Segundo Woody, DO) Hypertension Finger laceration History of non-ST elevation myocardial infarction (NSTEMI) (09/06/14) Obesity Pure hypercholesterolemia Essential (primary) hypertension Hearing loss in right ear Primary hyperparathyroidism BPH (benign prostatic hyperplasia) History of kidney stones Atherosclerotic heart disease of [place] coronary artery without angina pectoris Home Medications ?Medication ?Instructions ?Recorded ?Last Taken ?Type aspirin 81 mg chewable tablet 81 mg PO DAILY 09/06/14 Unknown History multivitamin with folic acid 400 1 tab PO DAILY 09/06/14 Unknown History mcg tablet nitroglycerin 0.4 mg sublingual 0.4 mg sublingual Q5-15M PRN CHEST 08/15/17 Unknown History tablet PAIN cholecalciferol (vitamin D3) 25 2,000 unit PO QDAY 08/15/19 Unknown History mcg (1,000 unit) capsule melatonin 5 mg capsule 5 mg PO QHS 08/15/19 Unknown History losartan 100 mg tablet 100 mg PO QDAY #90 tabs 08/09/21 Unknown Rx amlodipine 5 mg tablet 5 mg PO DAILY #90 tabs 11/10/21 Unknown Rx atorvastatin 80 mg tablet 80 mg PO QDAY #90 tabs 11/25/21 Unknown Rx carvedilol 6.25 mg tablet (Coreg) 6.25 mg PO BID #180 tabs 11/25/21 Unknown Rx clopidogrel 75 mg tablet (Plavix) 75 mg PO QDAY #90 tabs 11/25/21 Unknown Rx [id number] 300 mcg-K 60 1 tab PO DAILY 01/21/24 Unknown History mcg-lycop 600 mcg-lutein 300 mcg tablet (Centrum Silver Men) Allergy/AdvReac Type Severity Reaction Status Date / Time No Known Allergies Allergy Verified 05/19/22 11:16 Family History (Reviewed 05/19/22 @ 11:22 by Murray Bravo CAMPAIGN MANAGEMENT SENIOR MANAGER, CAMPAIGN MANAGEMENT SENIOR MANAGER-C) Mother Diabetes Father CAD (coronary artery disease) Myocardial infarction S/P CABG (coronary artery bypass graft) Surgical History (Reviewed 05/19/22 @ 11:22 by Murray Bravo CAMPAIGN MANAGEMENT SENIOR MANAGER, CAMPAIGN MANAGEMENT SENIOR MANAGER-C) History of coronary artery stent placement (10/21/14) Social History (Reviewed 05/19/22 @ 11:22 by Murray Bravo CAMPAIGN MANAGEMENT SENIOR MANAGER, CAMPAIGN MANAGEMENT SENIOR MANAGER-C) Smoking Status: Never smoker EXAM Physical Exam Const Vital Signs: 01/21/24 07:07 01/21/24 09:06 01/21/24 10:28 Temperature 98 F 98.2 F Temperature Source Temporal Pulse Rate 68 81 71 Respiratory Rate 18 18 15 Blood Pressure 170/83 H 142/78 H 149/69 H Blood Pressure Mean 112 99 95 Pulse Ox 98 98 95 Oxygen Delivery Method Room Air Room Air MDM MDM MDM Narrative Medical decision making narrative: 88-year-old male presents for evaluation of nausea, vomiting, diarrhea. Differential diagnosis includes but is not limited to viral illness, gastroenteritis, diverticulitis, pancreatitis, MELA, dehydration. NS bolus, Zofran ordered for symptoms. Abdominal pain workup ordered including CT abdomen and pelvis. CBC without leukocytosis. CMP relatively unremarkable. Lipase Unremarkable. Troponin negative. Lactic acid unremarkable. UA positive for UTI. CT abdomen pelvis shows a thickening of fluid-filled small bowel loops in gastritis and enterocolitis. He has small bilateral inguinal hernias. Zosyn given for antibiotics this will cover his UTI as well as colitis. Given patient's poor oral intake, weakness, diarrhea patient will benefit from. Patient was updated on his results and confirmed understanding of the plan. Patient was discussed with Dr. Woody and he excepted admission. Impression: 1. Gastritis and enterocolitis 2. UTI 3. Weakness 4. Dehydration 5. Diarrhea Lab Data Labs: Laboratory Results - last 24 hr 01/21/24 01/21/24 07:51 09:10 WBC 7.3 RBC 4.41 L Hgb 13.1 Hct 39.8 L MCV 90.2 MCH 29.7 MCHC 32.9 RDW Std Deviation 44.7 H RDW Coeff of Merlin 13.5 Plt Count 164 MPV 10.0 Immature Gran % (Auto) 0.400 Neut % (Auto) 76.6 H Lymph % (Auto) 14.7 L [place] % (Auto) 7.6 Eos % (Auto) 0.4 Baso % (Auto) 0.3 Absolute Neuts (auto) 5.6 Absolute Lymphs (auto) 1.08 Nucleated RBC % 0 Sodium 141 Potassium 3.8 Chloride 112 H Carbon Dioxide 22.0 Anion Gap 7 BUN 28 H Creatinine 1.14 Estim Creat Clear Calc 47.47 Est GFR (MDRD) Af Amer 78 Est GFR (MDRD) Non-Af 65 BUN/Creatinine Ratio 24.6 H Glucose 122 H Lactic Acid 1.4 Calcium 9.2 Total Bilirubin 0.90 AST 22 ALT 21 Alkaline Phosphatase 89 Troponin I High Sens 12 Total Protein 6.8 Albumin 3.5 Globulin 3.3 Albumin/Globulin Ratio 1.1 Lipase 30 Urine Color Yellow Urine Clarity Sl. Cloudy Urine pH 5.0 Ur Specific [place] 1.015 Urine Protein 30 H Urine Glucose (UA) Normal Urine Ketones Negative Urine Occult Blood 25 H Urine Nitrite Positive H Urine Bilirubin Negative Urine Urobilinogen Normal Ur Leukocyte Esterase 500 H Urine RBC 0-5 SEEN Urine WBC 10-25 SEEN Ur Squamous Epith Cells 0-5 SEEN Urine Bacteria 2+ Urine Mucus 0 SEEN Radiography Diagnostic Testing: Clinical Impression(s) from Imaging Studies Abdomen/Pelvis CT 01/21/24 07:32 IMPRESSION: 1. Thickening of the gastric antrum and fluid-filled small bowel loops and colon concerning for gastritis and enterocolitis. 2. Otherwise no focal acute inflammatory process. 3. Small bilateral inguinal hernias containing fat. Electronically Signed: Alek Schultz MD at 9:53 EDT , Discharge Plan Disposition Disposition: Acute Care Hospital [facility] Discharge Date/Time: 01/21/24 11:14
[2024-01-21] MEDS: Ondansetron 4 MG/2 ML Vial IV (07:50)
[2024-01-21] MEDS: 0.9% Normal Saline (1000mL) 1,000 ML 999 ML IV (07:50)
[2024-01-21 08:01] LABS: Absolute Lymphocyte Count 1.08 X10^3/uL (0.83-4.51); Absolute Neutrophil Count 5.6 X10^3/uL (2.0-7.7); Basophil# 0.02 X10^3/uL; Basophil% 0.3 % (0-1); Eosinophil# 0.03 X10^3/uL; Eosinophils% 0.4 % (0-5); Hematocrit 39.8 % (40-54); Hemoglobin 13.1 g/dL (13.0-16.5); Lymphocyte # 1.08 X10^3/ul (0.83-4.51); Lymphocyte % 14.7 % (19-41); Mean Corp Hgb Conc 32.9 g/dL (32-36); Mean Corpuscular Hgb 29.7 pg (27.0-32.0); Mean Corpuscular Volume 90.2 fL (80-94); Monocyte# 0.56 X10^3/uL; Monocyte% 7.6 % (0-10); NRBC Flagged by Analyzer 0 % (0-5); Neutrophil # 5.61 X10^3/uL (2.7-7.7); Neutrophil % 76.6 % (47-70); Platelet Count 164 K/mm3 (150-450); RBC Distribution Width CV 13.5 % (11.6-14.6); RBC Distribution Width SD 44.7 fl (35.1-43.9); Red Blood Count 4.41 M/mm3 (4.6-6.2); White Blood Count 7.3 K/mm3 (4.4-11.0)
[2024-01-21 08:24] LABS: ALB/GLOB Ratio 1.1 RATIO (0.9-2.4); AST(SGOT) 22 U/L (15-37); Alanine Aminotransfer ALT/SGPT 21 U/L (16-61); Albumin, Serum 3.5 g/dL (3.2-5.0); Alkaline Phosphatase 89 U/L (45-117); Anion Gap 7 (5-15); BUN 28 mg/dL (7-18); BUN/Creat Ratio 24.6 RATIO (10-20); Calcium,Total 9.2 mg/dL (8.5-10.1); Chloride 112 mmol/L (98-107); Creatinine, Serum 1.14 mg/dL (0.70-1.30); EST Glomerular Filtration Rate 65 mL/min (>60); Est Glom Filt Rate - Afr Amer 78 mL/min (>60); Estimated Creatinine Clearance 47.47 ml/min; Globulin 3.3 g/dL (2.2-4.2); Glucose 122 mg/dL (74-106); Lipase 30 U/L (13-75); Potassium 3.8 mmol/L (3.5-5.1); Protein, Total 6.8 g/dL (6.4-8.2); Sodium Level 141 mmol/L (136-145); Troponin-I HS 12 pg/mL (3.0-78.0)
[2024-01-21 08:26] LABS: Lactic Acid 1.4 mmol/L (0.4-1.9)
[2024-01-21 09:28] LABS: Mucous, Urine 0 SEEN /hpf (<or=2+)
[2024-01-21 09:31] LABS: Color, Urine Yellow (Yellow); Glucose, Dipstick Normal (Normal); Ketone-Dipstick Negative (Negative); Leukocyte Esterase-Dipstick 500 /ul (Negative); Nitrite-Dipstick Positive (Negative); Occult Blood-Urine 25 /ul (Negative); Protein-Dipstick 30 mg/dl (Negative); Specific Gravity, Urine 1.015 (1.002-1.030); Urine Bilirubin Dipstick Negative (Negative); Urine Clarity Sl. Cloudy (Clear); Urine Urobilinogen Normal (Normal)
[2024-01-21 09:43] LABS: Bacteria 2+ /hpf (None Seen); Red Blood Cells-Urine 0-5 SEEN /hpf (0-5); Squamous Epithelial Cells - UA 0-5 SEEN /hpf (0-5); White Blood Cells 10-25 SEEN /hpf (0-5)
[2024-01-21] MEDS: Piperacil/Tazobactam 3.375 GM in 0.9% Normal Saline (50mL MB+) 50 ML IV ×3 (10:18→22:11)
--- NOTE | 2024-01-21 10:28 | HP.PCM.HOS_ITS ---
HPI - General General Date of Admission: 01/21/24 Date of Service: 01/21/24 Chief Complaint: GI symptoms and weakness HPI Narrative JELENA NOLAN, is a 88 M who presented to [facility] ED on 01/21/2024 with nausea, vomiting, diarrhea and weakness over the past 4 to 5 days. Saw patient at bedside on the floor shortly after arriving over the ED, multiple family members present. Patient was sitting up comfortably in bed and stated he felt improved from this morning after receiving IV fluids in the ED. Patient is a and lives at home of self but has good functional status at baseline. 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 States that he started to have an upset stomach on Monday and while driving [employer] on Monday he had to kiln puller because of an upset stomach and had multiple episodes of vomiting. He then began to have diarrhea on and has continued to have diarrhea till today. Has had a poor appetite over the past 3 to 4 days, has only eaten some toast during that timeframe. He then noticed that he had some chills at home this morning and came to the ED for further evaluation. CT abdomen pelvis showed thickening of the gastric antrum and fluid-filled small bowel loops and colon concerning for gastritis and enterocolitis, otherwise no other concerning findings. UA showed positive nitrites, 500 leukocyte esterase and 2+ bacteria consistent with UTI. Patient was afebrile and hemodynamically stable but was dry appearing on exam and weak in the ED. He was given IV fluids and started on antibiotics, and hospitalist was contacted for admission. Patient and family note that he rarely ever has GI symptoms like this. Patient does report increased frequency of urination as he is gotten older but denies any recent changes to his urinary patterns or any burning with urination. He denies any bladder pain or discomfort. He does not take any medications for prostate issues. He reported mild abdominal pain in the ED but currently denies any abdominal pain. He has history of CAD with stent placement back in 2014 as well as hypertension and high cholesterol but is otherwise fairly healthy at baseline. No other acute concerns at this time. [facility] Medical History (Updated 01/21/24 @ 16:[address] Segundo Woody, DO) Hypertension Finger laceration History of non-ST elevation myocardial infarction (NSTEMI) (05/02/15) Obesity Pure hypercholesterolemia Essential (primary) hypertension Hearing loss in right ear Primary hyperparathyroidism BPH (benign prostatic hyperplasia) History of kidney stones Atherosclerotic heart disease of [place] coronary artery without angina pectoris Home Medications ?Medication ?Instructions ?Recorded ?Last Taken ?Type aspirin 81 mg chewable tablet 81 mg PO DAILY 09/06/14 Unknown History multivitamin with folic acid 400 1 tab PO DAILY 09/06/14 Unknown History mcg tablet nitroglycerin 0.4 mg sublingual 0.4 mg sublingual Q5-15M PRN CHEST 08/15/17 Unknown History tablet PAIN cholecalciferol (vitamin D3) 25 2,000 unit PO QDAY 08/15/19 Unknown History mcg (1,000 unit) capsule melatonin 5 mg capsule 5 mg PO QHS 08/15/19 Unknown History losartan 100 mg tablet 100 mg PO QDAY #90 tabs 08/09/21 Unknown Rx amlodipine 5 mg tablet 5 mg PO DAILY #90 tabs 11/10/21 Unknown Rx atorvastatin 80 mg tablet 80 mg PO QDAY #90 tabs 11/25/21 Unknown Rx carvedilol 6.25 mg tablet (Coreg) 6.25 mg PO BID #180 tabs 11/25/21 Unknown Rx clopidogrel 75 mg tablet (Plavix) 75 mg PO QDAY #90 tabs 11/25/21 Unknown Rx [id number]-tw-tpvkr 300 mcg-K 60 1 tab PO DAILY 01/21/24 Unknown History mcg-lycop 600 mcg-lutein 300 mcg tablet (Centrum Silver Men) Allergy/AdvReac Type Severity Reaction Status Date / Time No Known Allergies Allergy Verified 05/19/22 11:16 Family History Mother Diabetes Father CAD (coronary artery disease) Myocardial infarction S/P CABG (coronary artery bypass graft) Surgical History History of coronary artery stent placement (10/21/14) Social History Smoking Status: Never smoker ROS Constitutional Constitutional: Reports fatigue; Denies chills, fever(s) or weakness Eyes Eyes: Denies change in vision Cardiovascular Cardiovascular: Denies chest pain Respiratory/Chest Respiratory/Chest: Denies shortness of breath at rest Gastrointestinal Gastrointestinal: Denies abdominal pain Genitourinary Genitourinary: Reports urinary frequency; Denies burning urination, difficulty urinating or dysuria Musculoskeletal Musculoskeletal: Denies arthralgias or myalgias Neurologic Neurologic: Denies dizziness, focal weakness or headache(s) Vital Signs Vital Signs Vital Signs: 01/21/24 07:07 01/21/24 09:06 01/21/24 10:28 Temperature 98 F 98.2 F Temperature Source Temporal Pulse Rate 68 81 71 Respiratory Rate 18 18 15 Blood Pressure 170/83 H 142/78 H 149/69 H Blood Pressure Mean 112 99 95 Pulse Ox 98 98 95 Oxygen Delivery Method Room Air Room Air Weight Weight: 84.7 kg Body Mass Index (BMI) 30.1 Physical Exam Const alert, oriented x3, no apparent distress and average body habitus Constitutional Narrative: Pleasant elderly male, sitting up comfortably in bed and with good energy level, conversing normally, in no acute distress. General Appearance: cooperative and comfortable HEENT normocephalic, head/scalp atraumatic, hearing grossly normal bilaterally, nasal mucous membranes and turbinates normal and moist oral mucous membranes Eyes PERRL, EOMs intact bilaterally and conjunctivae normal Neck full ROM Chest inspection of chest normal Resp normal respiratory effort, normal air movement, no use of accessory muscles and clear to auscultation bilaterally Cardio regular rate, regular rhythm, no murmurs and peripheral pulses 2+ throughout GI normal to inspection, nondistended, normoactive bowel sounds, soft to palpation, non-tender and non-distended GI Narrative: Abdomen soft and nontender to palpation throughout. Back/Spine normal ROM Extremity normal to inspection, full ROM and no pedal edema Skin no rashes or lesions noted Neuro moves all extremities and no focal motor deficits Speech: speech normal Psych mental status grossly normal Results Lab / Micro Data 01/21/24 07:51 01/21/24 07:51 Labs: Laboratory Results - last 24 hr 01/21/24 07:51: WBC 7.3, RBC 4.41 L, Hgb 13.1, Hct 39.8 L, MCV 90.2, MCH 29.7, MCHC 32.9, RDW Std Deviation 44.7 H, RDW Coeff of Merlin 13.5, Plt Count 164, MPV 10.0, Immature Gran % (Auto) 0.400, Neut % (Auto) 76.6 H, Lymph % (Auto) 14.7 L, [place]ett % (Auto) 7.6, Eos % (Auto) 0.4, Baso % (Auto) 0.3, Absolute Neuts (auto) 5.6, Absolute Lymphs (auto) 1.08, Nucleated RBC % 0, Sodium 141, Potassium 3.8, Chloride 112 H, Carbon Dioxide 22.0, Anion Gap 7, BUN 28 H, Creatinine 1.14, Estim Creat Clear Calc 47.47, Est GFR (MDRD) Af Amer 78, Est GFR (MDRD) Non-Af 65, BUN/Creatinine Ratio 24.6 H, Glucose 122 H, Lactic Acid 1.4, Calcium 9.2, Total Bilirubin 0.90, AST 22, ALT 21, Alkaline Phosphatase 89, Troponin I High Sens 12, Total Protein 6.8, Albumin 3.5, Globulin 3.3, Albumin/Globulin Ratio 1.1, Lipase 30 01/21/24 09:10: Urine Color Yellow, Urine Clarity Sl. Cloudy, Urine pH 5.0, Ur Specific [place] 1.015, Urine Protein 30 H, Urine Glucose (UA) Normal, Urine Ketones Negative, Urine Occult Blood 25 H, Urine Nitrite Positive H, Urine Bilirubin Negative, Urine Urobilinogen Normal, Ur Leukocyte Esterase 500 H, Urine RBC 0-5 SEEN, Urine WBC 10-25 SEEN, Ur Squamous Epith Cells 0-5 SEEN, Urine Bacteria 2+, Urine Mucus 0 SEEN Micro: Microbiology 01/21/24 07:51 Mucosa - Nasopharyngeal SARS-CoV-2, Influenza & RSV (PCR) - Final Imaging Radiology Impression Abdomen/Pelvis CT 01/21/24 07:32 IMPRESSION: 1. Thickening of the gastric antrum and fluid-filled small bowel loops and colon concerning for gastritis and enterocolitis. 2. Otherwise no focal acute inflammatory process. 3. Small bilateral inguinal hernias containing fat. Electronically Signed: Alek Schultz MD at 9:53 EDT , Assessment & Plan Assessment/Plan (1) Gastroenteritis: (2) Fatigue: (3) UTI (urinary tract infection): PLAN: Plan Patient is an 88-year-old male who presented to [facility] ED on 01/21/2024 with GI symptoms and weakness. 1. Suspected gastroenteritis ? Admit under observation status to [facility]. Presented with nausea/vomiting/diarrhea for [address] abdomen pelvis showed thickening of the gastric antrum and fluid-filled small bowel loops and colon concerning for gastritis and enterocolitis. Most likely etiology seems to be either a viral or bacterial gastroenteritis given acute timeframe and no significant prior history of episodes like this. Stool sample collected, result pending. Will treat with IV Zosyn for now. Received IV fluid resuscitation in the ED and appears euvolemic, no need for further resuscitation, encouraged p.o. intake. Tolerating clear liquid diet, will advance to full liquid diet for this evening. If patient tolerating regular diet by tomorrow, will likely be okay for discharge home. 2. Acute cystitis with suspected history of BPH with obstructive symptoms ? UA on admit showed positive nitrites, 500 leukocyte esterase and 2+ bacteria consistent with UTI. Urine culture pending. Patient reports chronic urinary frequency likely due to BPH given his age. Notably with no hydronephrosis or significant bladder distention noted on CT abdomen pelvis on admit. Will start Flomax 0.4 mg at night. Treating with IV Zosyn as noted above for now. 3. Mild acute on chronic debility ? PT/OT/case management consulted. Patient lives at home alone, has good functional status at baseline but reports feeling weaker and more fatigued with this acute illness. Will likely be okay for discharge home with no needs but will follow-up therapy recommendations tomorrow. 4. History of CAD s/p stenting, hypertension, hyperlipidemia ? Had stenting done back in 2014, no further cardiac events since then. Mildly hypertensive on admission. Continue home aspirin, Plavix, statin, Coreg, losartan and amlodipine. DVT prophylaxis: Lovenox CODE STATUS: Full code, verified Expected disposition: Home, 1 to 2 days Total clinical time spent by myself addressing the patient's medical issues, reviewing all the data, and collaborating with patient's care team: 55 minutes. Charges/Coding Visit Charges Inpatient E&M: 79966 Init Hosp L2
--- NOTE | 2024-01-21 10:31 | NURSING ---
MED SURG OBS MOSTELLER COLITIS
[2024-01-21] MEDS: Ensure Clear 120 ML Liquid PO (16:41)
[2024-01-21] MEDS: Carvedilol 6.25 MG Tablet PO (16:41)
[2024-01-22 03:00] VITALS: BP 143/78; PULSE 84; RESP 16; TEMP 36.8; O2SAT 97
[2024-01-22] MEDS: Piperacil/Tazobactam 3.375 GM in 0.9% Normal Saline (50mL MB+) 50 ML IV ×3 (05:41→22:33)
[2024-01-22 07:13] LABS: Hemoglobin 12.8 g/dL (13.0-16.5); Mean Corp Hgb Conc 32.8 g/dL (32-36); Mean Corpuscular Volume 91.3 fL (80-94); Mean Platelet Vol. 10.1 fl (6.2-12.0); Platelet Count 179 K/mm3 (150-450); RBC Distribution Width CV 13.5 % (11.6-14.6); RBC Distribution Width SD 45.1 fl (35.1-43.9); Red Blood Count 4.27 M/mm3 (4.6-6.2); White Blood Count 7.8 K/mm3 (4.4-11.0)
[2024-01-22] MEDS: Aspirin 81 MG TAB.CHEW PO (07:25)
[2024-01-22] MEDS: Carvedilol 6.25 MG Tablet PO ×2 (07:26→16:21)
[2024-01-22] MEDS: Cholecalciferol (VIT D3) 25 MCG TABLET (1,000 UNITS) 50 MCG PO (07:26)
[2024-01-22] MEDS: Clopidogrel Bisulfate 75 MG Tablet PO (07:26)
[2024-01-22] MEDS: Enoxaparin 40 MG/0.4 ML Syringe SC (07:26)
[2024-01-22 07:27] VITALS: O2SAT 94
[2024-01-22] MEDS: Atorvastatin Calcium 80 MG Tablet PO (07:27)
[2024-01-22] MEDS: Ensure Clear 120 ML Liquid PO ×3 (07:28→16:21)
[2024-01-22] MEDS: Losartan Potassium 100 MG Tablet PO (07:29)
[2024-01-22] MEDS: amLODIPine 5 MG Tablet PO (07:29)
[2024-01-22 07:45] LABS: Anion Gap 7 (5-15); BUN 20 mg/dL (7-18); BUN/Creat Ratio 18.5 RATIO (10-20); Calcium,Total 8.6 mg/dL (8.5-10.1); Chloride 113 mmol/L (98-107); Creatinine, Serum 1.08 mg/dL (0.70-1.30); EST Glomerular Filtration Rate 69 mL/min (>60); Est Glom Filt Rate - Afr Amer 83 mL/min (>60); Estimated Creatinine Clearance 49.17 ml/min; Glucose 109 mg/dL (74-106); Potassium 3.4 mmol/L (3.5-5.1); Sodium Level 142 mmol/L (136-145)
[2024-01-22 08:39] VITALS: BP 130/68; PULSE 66; RESP 16; TEMP 36.6; O2SAT 97
[2024-01-22] MEDS: Pantoprazole Sodium 40 MG Tablet PO (09:37)
[2024-01-22 11:49] VITALS: BP 139/71; PULSE 81; RESP 16; TEMP 36.6; O2SAT 98
--- NOTE | 2024-01-22 12:20 | CASEMGMT ---
RN CM into pt room to discuss dc planning. Pt sitting up on chair in no distress. Pt declined therapy today d/t being I at home. Pt states he lives alone and is I. 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 He states he goes to [employer] daily for breakfast and dinner. Pt mows with walk behind [employer] that is equal to 3mi. Pt does woodworking as a hobby. Pt denies any homegoing needs at this time.
--- NOTE | 2024-01-22 15:25 | CASEMGMT ---
Met with patient to complete ENGLISH form. ENGLISH form explained to patient who voiced understanding and signed form. Original form placed in pt?s chart and copy provided to patient. Monique Philippe, Discharge Planning Asst
[2024-01-22 16:01] VITALS: BP 156/68; PULSE 70; RESP 16; TEMP 36.6; O2SAT 96
--- NOTE | 2024-01-22 16:37 | PN.HOSP_ITS ---
Reason for Visit Reason for Visit: Diagnoses Noninfective gastroenteritis and colitis, unspecified (01/21/24) Urinary tract infection, site not specified (01/21/24) Other fatigue (01/21/24) Subjective Subjective Saw patient at bedside this morning. Patient appeared similar to yesterday, was sitting up fairly comfortably in bed, in no acute distress. He did have a loose bowel movement this morning but this was his only bowel movement since yesterday. His stool testing was negative for C. difficile or any other enteric pathogens. Patient tolerated full liquid diet at lunch well today. Saw him again this afternoon and talk with his daughter over the phone. He notably did have another loose bowel movement this afternoon. Noted that we were escalating him to a regular diet tonight to see how he tolerates this. We are still waiting for the final urine culture results. Patient and daughter both, comfortable with remaining in the hospital tonight and if he is tolerating a diet well tomorrow and his diarrhea is improving, we will plan for discharge home tomorrow. Patient denies any other concerns currently. Objective Data Objective Data Vital Signs: Vital Signs Temp Pulse Resp BP Pulse Ox O2 Del Method 97.9 F 70 16 156/68 H 96 Room Air 01/22/24 16:01 01/22/24 16:01 01/22/24 16:01 01/22/24 16:01 01/22/24 16:01 01/22/24 16:01 Oxygen Delivery Method Room Air Weight: 81.329 kg Body Mass Index (BMI) 28.9 Intake & Output: Intake and Output for Last 24 Hours 01/20/24 01/21/24 01/22/24 23:59 23:59 23:59 Intake Total 1350 / 1350 500 / 500 Balance 1350 / 1350 500 / 500 Medical Nutrition Assessment Dietitian: Malnutrition Criteria Met Start: 01/22/24 12:24 Freq: Status: Active Protocol: Document 01/22/24 12:24 GIOVANNY (Rec: 01/22/24 12:24 SLA [id number]) Nutrition Malnutrition Evidence of Malnutrition Exists Yes Malnutrition (severe): Acute Illness/Injury Evidenced By Suboptimal Energy Intake ( Severe),Weight Loss (Severe) Clinical Problem Acute Disease or Injury Related Malnutrition Etiology related to n/v/d and poor po intake Signs/Symptoms as evidenced by pt with 5.7% unintended wt loss and po intake meeting <75% of est nutritional needs 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 Lab / Micro Data 01/22/24 06:35 01/22/24 06:35 Labs: Laboratory Results - last 24 hr 01/22/24 06:35: WBC 7.8, RBC 4.27 L, Hgb 12.8 L, Hct 39.0 L, MCV 91.3, MCH 30.0, MCHC 32.8, RDW Std Deviation 45.1 H, RDW Coeff of Merlin 13.5, Plt Count 179, MPV 10.1, Sodium 142, Potassium 3.4 L, Chloride 113 H, Carbon Dioxide 22.0, Anion Gap 7, BUN 20 H, Creatinine 1.08, Estim Creat Clear Calc 49.17, Est GFR (MDRD) Af Amer 83, Est GFR (MDRD) Non-Af 69, BUN/Creatinine Ratio 18.5, Glucose 109 H, Calcium 8.6 Micro: Microbiology 01/22/24 09:40 Stool Clostridioides difficile (PCR) - Final 01/21/24 09:10 Urine, Midstream Urine Culture - Preliminary Gram negative yamilex 01/21/24 12:57 Stool Enteric Bacteriology - Final 01/21/24 07:51 Mucosa - Nasopharyngeal SARS-CoV-2, Influenza & RSV (PCR) - Final Physical Exam Const alert, oriented x3, no apparent distress and average body habitus Constitutional Narrative: Pleasant elderly male, sitting up comfortably in bed, conversing normally, in no acute distress. Stable. General Appearance: cooperative and comfortable HEENT normocephalic, head/scalp atraumatic, hearing grossly normal bilaterally, nasal mucous membranes and turbinates normal and moist oral mucous membranes Eyes PERRL, EOMs intact bilaterally and conjunctivae normal Neck full ROM Chest inspection of chest normal Resp normal respiratory effort, normal air movement, no use of accessory muscles and clear to auscultation bilaterally Cardio regular rate, regular rhythm, no murmurs and peripheral pulses 2+ throughout GI normal to inspection, nondistended, normoactive bowel sounds, soft to palpation, non-tender and non-distended GI Narrative: Abdomen soft and nontender to palpation throughout. Stable. Back/Spine normal ROM Extremity normal to inspection, full ROM and no pedal edema Skin no rashes or lesions noted Neuro moves all extremities and no focal motor deficits Speech: speech normal Psych mental status grossly normal Assessment & Plan Assessment/Plan (1) Gastroenteritis: (2) Fatigue: (3) UTI (urinary tract infection): PLAN: Plan Patient is an 88-year-old male who presented to [facility] ED on 01/21/2024 with GI symptoms and weakness. 1. Suspected viral gastroenteritis ? Presented with nausea/vomiting/diarrhea for [address] abdomen pelvis showed thickening of the gastric antrum and fluid-filled small bowel loops and colon concerning for gastritis and enterocolitis. Stool panel and C. difficile negative. Most likely etiology seems to be a viral gastroenteritis given the acute timeframe and no significant prior history of episodes like this. Has tolerated full liquid diet well to this point, advanced to regular diet for this evening. Is still having intermittent liquid bowel movements, Imodium ordered as needed. If patient is tolerating regular diet well with improvement in bowel movements tomorrow, will plan for discharge home. 2. Acute cystitis with suspected history of BPH with obstructive symptoms ? UA on admit showed positive nitrites, 500 leukocyte esterase and 2+ bacteria consistent with UTI. Urine culture growing > 100K gram negative rods, speciation and sensitivities pending. Patient reports chronic urinary frequency likely due to BPH given his age. Notably with no hydronephrosis or significant bladder distention noted on CT abdomen pelvis on admit. Continue IV Zosyn for now, will plan to discharge on p.o. antibiotics for 7-day course tomorrow. Continue Flomax at night that was started on admission. 3. Mild acute on chronic debility ? PT/OT/case management following. Patient lives at home alone, has good functional status at baseline but reports feeling weaker and more fatigued with this acute illness. Doing well in hospital day 2, will be okay for discharge home with no therapy needs. 4. History of CAD s/p stenting, hypertension, hyperlipidemia ? Had stenting done back in 2014, no further cardiac events since then. Mildly hypertensive during admission, no episodes of hypotension. Continue home aspirin, Plavix, statin, Coreg, losartan and amlodipine. DVT prophylaxis: Lovenox CODE STATUS: Full code, verified Expected disposition: Home, 1 to 2 days *Patient notably was admitted under observation status but given he is not tolerating regular diet yet and continues to have liquid bowel movements, and since urine culture has not finalized yet, will keep inpatient for another night. Status changed to inpatient status. Total clinical time spent by myself addressing the patient's medical issues, reviewing all the data, and collaborating with patient's care team: 35 minutes. Charges/Coding Visit Charges Inpatient E&M: 63232 Subs Hosp L2
[2024-01-22 21:00] VITALS: BP 139/100; PULSE 74; RESP 16; TEMP 37; O2SAT 97
[2024-01-23 03:03] VITALS: BP 133/76; PULSE 71; RESP 17; TEMP 36.4; O2SAT 98
[2024-01-23] MEDS: Piperacil/Tazobactam 3.375 GM in 0.9% Normal Saline (50mL MB+) 50 ML IV ×2 (05:11→13:32)
[2024-01-23 08:00] VITALS: BP 116/82; PULSE 73; RESP 18; TEMP 36.7; O2SAT 97
[2024-01-23] MEDS: Atorvastatin Calcium 80 MG Tablet PO (08:00)
[2024-01-23] MEDS: Aspirin 81 MG TAB.CHEW PO (08:00)
[2024-01-23] MEDS: Pantoprazole Sodium 40 MG Tablet PO (08:00)
[2024-01-23] MEDS: Cholecalciferol (VIT D3) 25 MCG TABLET (1,000 UNITS) 50 MCG PO (08:00)
[2024-01-23] MEDS: amLODIPine 5 MG Tablet PO (08:00)
[2024-01-23] MEDS: Clopidogrel Bisulfate 75 MG Tablet PO (08:00)
[2024-01-23] MEDS: Carvedilol 6.25 MG Tablet PO (08:00)
[2024-01-23] MEDS: Enoxaparin 40 MG/0.4 ML Syringe SC (08:00)
[2024-01-23] MEDS: Losartan Potassium 100 MG Tablet PO (08:00)
[2024-01-23] MEDS: Ensure Clear 120 ML Liquid PO (08:05)
[2024-01-23] MEDS: Dicyclomine 10 MG Capsule PO (11:03)
--- NOTE | 2024-01-23 13:58 | PCM.DC ---
Discharge Instructions Diet Discharge Diet: No restrictions Activity Discharge Activity: No Restrictions Follow Up Care Test Results: Test results from this visit will be discussed in further detail at your follow-up appointment, if applicable. Discharge Plan Admission Admit Date/Time: 01/22/24 16:43 Primary Reason for Your Visit: Nausea, vomiting and diarrhea Attending Provider: Segundo Woody Primary Care Provider: Ponce Camacho Instructions Additional Instructions / Restrictions: Please take Bactrim twice daily for 4 more days to complete a 7-day course of antibiotics total. Take Flomax 1 pill at night for enlarged prostate. Take pantoprazole once daily for acid reflux. Take dicyclomine with meals as needed for abdominal discomfort. Continue all other home medications as normal. Follow-up with your primary care doctor as needed. Discharge Orders/Prescriptions Prescriptions: New pantoprazole 40 mg Tablet,Delayed Release (Dr/Ec) 40 mg PO DAILY 30 Days Qty: 30 2RF dicyclomine 10 mg Capsule 10 mg PO TIDAC PRN (Reason: Abdominal Discomfort) 5 Days Qty: 15 0RF tamsulosin [Flomax] 0.4 mg capsule 0.4 mg PO QHS Qty: 30 2RF sulfamethoxazole-trimethoprim [Bactrim DS] 800-160 mg tablet 1 tab PO BID 4 Days Qty: 8 0RF Continued nitroglycerin 0.4 mg tablet, sublingual 0.4 mg SUBLINGUAL Q5-15M PRN (Reason: CHEST PAIN) cholecalciferol (vitamin D3) 25 mcg (1,000 unit) capsule 2,000 unit PO QDAY melatonin 5 mg capsule 5 mg PO QHS carvedilol [Coreg] 6.25 mg tablet 6.25 mg PO BID Qty: 180 3RF clopidogrel [Plavix] 75 mg tablet 75 mg PO QDAY Qty: 90 3RF atorvastatin 80 mg tablet 80 mg PO QDAY Qty: 90 3RF aspirin 81 MG tablet,chewable 81 mg PO DAILY multivitamin with folic acid 1 TABLET tablet 1 tab PO DAILY Centrum Silver Men [id number] mcg tablet 1 tab PO DAILY losartan 100 mg tablet 100 mg PO QDAY Qty: 90 3RF amlodipine 5 mg tablet 5 mg PO DAILY Qty: 90 3RF Referrals / Follow Up: Ponce Camacho MD [Primary Care Provider] - Disposition Disposition (needs filled in before D/C Order can be placed): Home, Self Care
[2024-01-23 14:03] VITALS: BP 141/64; PULSE 65; RESP 18; TEMP 36.7; O2SAT 95
--- NOTE | 2024-01-23 14:03 | DS.PCM_ITS ---
Providers Date of Admission: 01/21/24 Date of Discharge: 01/23/24 Primary Care Physician: Dr. Ponce Camacho MD Reason For Visit: COLITIS W/UTI AND WEAKNESS Diagnosis Discharge Diagnosis (1) Gastroenteritis: Status: Acute Code(s): K52.9 - Noninfective gastroenteritis and colitis, unspecified (2) Fatigue: Status: Acute Code(s): R53.83 - Other fatigue (3) UTI (urinary tract infection): Status: Acute Code(s): N39.0 - Urinary tract infection, site not specified Medications at Discharge Home Medications aspirin 81 mg chewable tablet 81 mg PO DAILY 09/06/14 multivitamin with folic acid 400 mcg tablet 1 tab PO DAILY 09/06/14 nitroglycerin 0.4 mg sublingual tablet 0.4 mg sublingual Q5-15M PRN CHEST PAIN 08/15/17 cholecalciferol (vitamin D3) 25 mcg (1,000 unit) capsule 2,000 unit PO QDAY 08/15/19 melatonin 5 mg capsule 5 mg PO QHS 08/15/19 losartan 100 mg tablet 100 mg PO QDAY #90 tabs 08/09/21 amlodipine 5 mg tablet 5 mg PO DAILY #90 tabs 11/10/21 atorvastatin 80 mg tablet 80 mg PO QDAY #90 tabs 11/25/21 carvedilol 6.25 mg tablet (Coreg) 6.25 mg PO BID #180 tabs 11/25/21 clopidogrel 75 mg tablet (Plavix) 75 mg PO QDAY #90 tabs 11/25/21 [id number] 300 mcg-K 60 mcg-lycop 600 mcg-lutein 300 mcg tablet (Centrum Silver Men) 1 tab PO DAILY 01/21/24 dicyclomine 10 mg capsule 10 mg PO TIDAC PRN Abdominal Discomfort 5 days #15 caps 01/23/24 pantoprazole 40 mg tablet,delayed release 40 mg PO DAILY 30 days #30 tabs 01/23/24 sulfamethoxazole 800 mg-trimethoprim 160 mg tablet (Bactrim DS) 1 tab PO BID 4 days #8 tabs 01/23/24 tamsulosin 0.4 mg capsule (Flomax) 0.4 mg PO QHS #30 caps 01/23/24 Hospital Course Operations None Procedures EKG and - (CT abdomen pelvis) Summary of Care Provided Minutes Spent on Discharge: 35 Hospital Course: Patient is an 88-year-old male who presented to [facility] [place] ED on 01/21/2024 with GI symptoms and weakness. Hospital course as noted below. Patient discharged home with no therapy needs in stable condition on 01/22. 1. Suspected viral gastroenteritis ? Presented with nausea/vomiting/diarrhea for [address] abdomen pelvis showed thickening of the gastric antrum and fluid-filled small bowel loops and colon concerning for gastritis and enterocolitis. Stool panel and C. difficile negative. Most likely etiology seems to be a viral gastroenteritis given the acute timeframe and no significant prior history of episodes like this. Had concern for some degree of gastritis as well possibly due to the active infection. PPI added on 01/21. Bentyl as needed added for intermittent time of discomfort with some improvement. Diarrhea improved during hospitalization. Patient tolerating regular diet well on day of discharge. Will continue p.o. PPI daily and Bentyl as needed on discharge. 2. Acute cystitis with suspected history of BPH with obstructive symptoms ? UA on admit showed positive nitrites, 500 leukocyte esterase and 2+ bacteria consistent with UTI. Urine culture grew > 100K E. coli. Treated with IV Zosyn while inpatient, discharged on p.o. Bactrim to complete 7-day course of antibiotics total. Patient reported chronic urinary frequency likely due to BPH given his age. Notably with no hydronephrosis or significant bladder distention noted on CT abdomen pelvis on admit. Started on Flomax at night on discharge. 3. Mild acute on chronic debility ? PT/OT/case management followed. Patient lives at home alone, has good functional status at baseline but reports feeling weaker and more fatigued with this acute illness. Did well during hospitalization, okay for discharge home with no therapy needs. 4. History of CAD s/p stenting, hypertension, hyperlipidemia ? Had stenting done back in 2014, no further cardiac events since then. Mildly hypertensive during admission, no episodes of hypotension. Continue home aspirin, Plavix, statin, Coreg, losartan and amlodipine. Total clinical time spent by myself addressing the patient's medical issues, reviewing all the data, and collaborating with patient's care team: 35 minutes. Physical Exam Const alert, oriented x3, no apparent distress and average body habitus Constitutional Narrative: Pleasant elderly male, sitting up comfortably in bed, conversing normally, in no acute distress. Stable. General Appearance: cooperative and comfortable HEENT normocephalic, head/scalp atraumatic, hearing grossly normal bilaterally, nasal mucous membranes and turbinates normal and moist oral mucous membranes Eyes PERRL, EOMs intact bilaterally and conjunctivae normal Neck full ROM Chest inspection of chest normal Resp normal respiratory effort, normal air movement, no use of accessory muscles and clear to auscultation bilaterally Cardio regular rate, regular rhythm, no murmurs and peripheral pulses 2+ throughout GI normal to inspection, nondistended, normoactive bowel sounds, soft to palpation, non-tender and non-distended GI Narrative: Abdomen soft and nontender to palpation throughout. Stable. Back/Spine normal ROM Extremity normal to inspection, full ROM and no pedal edema Skin no rashes or lesions noted Neuro moves all extremities and no focal motor deficits Speech: speech normal Psych mental status grossly normal Medical Records Data Medical Nutrition Assessment Dietitian: Malnutrition Criteria Met Start: 01/22/24 12:24 Freq: Status: Active Protocol: Document 01/22/24 12:24 [facility] (Rec: 01/22/24 12:24 SLA [id number]) Nutrition Malnutrition Evidence of Malnutrition Exists Yes Malnutrition (severe): Acute Illness/Injury Evidenced By Suboptimal Energy Intake ( Severe),Weight Loss (Severe) Clinical Problem Acute Disease or Injury Related Malnutrition Etiology related to n/v/d and poor po intake Signs/Symptoms as evidenced by pt with 5.7% unintended wt loss and po intake meeting <75% 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 Weight / BMI Weight Weight: 81.329 kg Body Mass Index (BMI) 28.9 ABG / Lab / Microbiology Data 01/22/24 06:35 01/22/24 06:35 Microbiology: Microbiology 01/21/24 09:10 Urine, Midstream Urine Culture - Final Escherichia coli 01/22/24 09:40 Stool Clostridioides difficile (PCR) - Final 01/21/24 12:57 Stool Enteric Bacteriology - Final 01/21/24 07:51 Mucosa - Nasopharyngeal SARS-CoV-2, Influenza & RSV (PCR) - Final D/C Instructions Discharge Diet: No restrictions Meaningful Use Info Meaningful Use Meaningful Use Diagnoses (Choose all that apply): None applicable Ischemic Stroke Statin Dosing Therapy Reference: STATIN DOSE THERAPY REFERENCE: * Patients > 75 years receive moderate or high dose statin therapy. * Patients 75 years or YOUNGER should receive HIGH intensity statin dose unless contraindicated. You will be required to document reason for non-treatment if statin daily dose does not meet guidelines. HIGH DOSE STATIN THERAPY DAILY Atorvastatin > than or = to 40 mg Rosuvastatin > than or = to 20 mg Amlodipine + Atorvastatin > than or = to 2.5/40 mg Ezetimibe + Simvastatin 10/80 mg Simvastatin 80mg Discharge Plan Admission Admit Date/Time: 01/22/24 16:43 Primary Reason for Your Visit: Nausea, vomiting and diarrhea Attending Provider: Segundo Woody Primary Care Provider: Ponce Camacho Instructions Additional Instructions / Restrictions: Please take Bactrim twice daily for 4 more days to complete a 7-day course of antibiotics total. Take Flomax 1 pill at night for enlarged prostate. Take pantoprazole once daily for acid reflux. Take dicyclomine with meals as needed for abdominal discomfort. Continue all other home medications as normal. Follow-up with your primary care doctor as needed. Discharge Orders/Prescriptions Prescriptions: New pantoprazole 40 mg Tablet,Delayed Release (Dr/Ec) 40 mg PO DAILY 30 Days Qty: 30 2RF dicyclomine 10 mg Capsule 10 mg PO TIDAC PRN (Reason: Abdominal Discomfort) 5 Days Qty: 15 0RF tamsulosin [Flomax] 0.4 mg capsule 0.4 mg PO QHS Qty: 30 2RF sulfamethoxazole-trimethoprim [Bactrim DS] 800-160 mg tablet 1 tab PO BID 4 Days Qty: 8 0RF Continued nitroglycerin 0.4 mg tablet, sublingual 0.4 mg SUBLINGUAL Q5-15M PRN (Reason: CHEST PAIN) cholecalciferol (vitamin D3) 25 mcg (1,000 unit) capsule 2,000 unit PO QDAY melatonin 5 mg capsule 5 mg PO QHS carvedilol [Coreg] 6.25 mg tablet 6.25 mg PO BID Qty: 180 3RF clopidogrel [Plavix] 75 mg tablet 75 mg PO QDAY Qty: 90 3RF atorvastatin 80 mg tablet 80 mg PO QDAY Qty: 90 3RF aspirin 81 MG tablet,chewable 81 mg PO DAILY multivitamin with folic acid 1 TABLET tablet 1 tab PO DAILY Centrum Silver Men [phone] mcg tablet 1 tab PO DAILY losartan 100 mg tablet 100 mg PO QDAY Qty: 90 3RF amlodipine 5 mg tablet 5 mg PO DAILY Qty: 90 3RF Referrals / Follow Up: Ponce Camacho MD [Primary Care Provider] - Disposition Disposition (needs filled in before D/C Order can be placed): Home, Self Care Charges/Coding Visit Charges Inpatient E&M: 61983 Disch Hosp >30min
--- NOTE | 2024-01-23 15:55 | CHAPLAIN ---
Type of Pastoral Visit ___ Initial Visit ___ Follow-up Visit ___ On-call Visit ___ General Patient Visit ___ Spiritual Assessment ___ Family Conference ___ Bereavement ___ Rapid Response ___ Code Blue ___ Other (describe below) Pastoral Care Referral From ___ Patient ___ Family ___ Nurse ___ Physician ___ Sustainable Systems Analyst ___ Post Commander ___ Other (describe below) Sacrament/Intervention ___ Active listening ___ Anointing ___ Zoroastrianism ___ Bereavement ___ Communion ___ Starla exploration ___ ___ Life review ___ Prayer ___ Reconciliation ___ Sacrament of Sick ___ Supportive presence ___ Wedding ___ Other (describe below) Pastoral Comments patient was sleeping when the visit was attempted
== END 2024-01-23 15:51 | disposition home or self-care (01) | DRG 392 ==
LOC: ED 10:33 → MS3 10:46
PROVIDERS: Admitting Provider Hospitalist; Emergency Provider Surgery; PCP Family Medicine; Visit Provider Hospitalist
DX: A08.4 Viral intestinal infection, unspecified (principal); N13.8 Other obstructive and reflux uropathy; N30.00 Acute cystitis without hematuria; I10 Essential (primary) hypertension; E78.00 Pure hypercholesterolemia, unspecified; I25.10 Atherosclerotic heart disease of native coronary artery without angina pectoris; K21.9 Gastro-esophageal reflux disease without esophagitis; I25.2 Old myocardial infarction; B96.20 Unspecified Escherichia coli [E. coli] as the cause of diseases classified elsewhere; N40.1 Benign prostatic hyperplasia with lower urinary tract symptoms; R53.81 Other malaise; Z68.28 Body mass index [BMI] 28.0-28.9, adult; Z95.5 Presence of coronary angioplasty implant and graft; Z79.02 Long term (current) use of antithrombotics/antiplatelets; Z79.82 Long term (current) use of aspirin; Z79.899 Other long term (current) drug therapy
CPT/HCPCS: 74177; 80048; 80053; 81001; 83605; 83690; 84484; 85025; 85027; 87077; 87086; 87088; 87186; 87493; 87506; 87631; 93005; 94668; 97802; 99284; Q9967; A4216; J2405